=== PATIENT | male | born 1995 | race African-American/Black ===

== ENCOUNTER 2021-05-21 13:52 | Emergency (ER) | payer BC, MEDICARE, OTHER ==
[~2021-05-21] VITALS: Ht 182.9 cm; Wt 93.0 kg
[~2021-05-21 13:52] MED LIST: ALBU6.7H9; TOPUD
[2021-05-21] MEDS ORDERED: BO1 TP (14:20)
[2021-05-21] MEDS ORDERED: BACITRACIN ZINC OINT UDPKT TOP ONE (14:30)
[2021-05-21 14:37] VITALS: BP 136/87
== END 2021-05-21 14:39 | disposition home or self-care (01) ==
LOC: ER 13:52
DX: Z48.02 Encounter for removal of sutures (principal); F12.10 Cannabis abuse, uncomplicated; J45.909 Unspecified asthma, uncomplicated
CPT/HCPCS: 99282; Z7610

== ENCOUNTER 2022-04-03 03:48 | Emergency (ER) | payer BC ==
[~2022-04-03] VITALS: Ht 180.3 cm; Wt 130.3 kg
[~2022-04-03 03:48] MED LIST changes: +BO1 TP
[2022-04-03 04:10] VITALS: BP 159/94
== END 2022-04-03 07:15 | disposition home or self-care (01) ==
LOC: ER 03:48
DX: K62.5 Hemorrhage of anus and rectum (principal); K64.9 Unspecified hemorrhoids; F12.10 Cannabis abuse, uncomplicated; J45.909 Unspecified asthma, uncomplicated
CPT/HCPCS: 99281

== ENCOUNTER 2022-06-17 20:58 | Emergency (ER) | payer BC ==
[~2022-06-17] VITALS: Ht 180.3 cm; Wt 128.0 kg
[2022-06-17 21:30] VITALS: BP 145/94
== END 2022-06-18 02:15 | disposition home or self-care (01) ==
LOC: ER 20:58
DX: E86.0 Dehydration (principal); I10 Essential (primary) hypertension
CPT/HCPCS: 99281